=== PATIENT | female | born 1995 | race Caucasian/White ===

== ENCOUNTER 2018-01-25 18:37 | Emergency (ER) | payer OTHER, MEDICAID ==
[2018-01-25] MEDS: ACETAMINOPHEN 500 MG TAB PO (20:50)
== END 2018-01-25 22:27 | disposition home or self-care (01) ==
LOC: FTE 18:37
DX: S93.401A Sprain of unspecified ligament of right ankle, initial encounter (principal); X58.XXXA Exposure to other specified factors, initial encounter; Y92.9 Unspecified place or not applicable
CPT/HCPCS: 73610; 73610-RT; 73620; 99283-25